=== PATIENT | female | born 1950 | race Caucasian/White ===

== ENCOUNTER 2017-03-25 11:46 | Emergency (ER) | payer MEDICARE, BC ==
--- NOTE | 2017-03-25 13:26 | EDM.PDOC ---
ED HPI GENERAL MEDICAL PROBLEM - General Stated Complaint: NOT FEELING WELL Time Seen by Provider: 03/25/17 12:15 Source of Information: Reports: Patient History Limitations: Reports: No Limitations - History of Present Illness INITIAL COMMENTS - FREE TEXT/NARRATIVE: This is a 66yo F who presents to the ER with concerns of not feeling well. She states she feels that her lactic acid is high as it was in a prior ER visit due to pain of the calves. She states she just does not feel right and is concerned. Patient unable to express exactly what is wrong but she does not feel right. Onset: Sudden Duration: Hour(s):, Getting Worse Location: Reports: Generalized Quality: Reports: Same as Previous Episode Severity: Moderate Improves with: Reports: None Worsens with: Reports: None - Related Data Allergies Allergy/AdvReac Type Severity Reaction Status Date / Time codeine Allergy Headache Verified 03/25/17 13:21 meperidine HCl [From Demerol] Allergy Headache Verified 03/25/17 13:21 peanut Allergy Nausea Verified 03/25/17 13:21 Home Meds: Home Meds Magnesium Oxide [Magnesium Oxide] 400 mg PO BID 05/23/15 [History] Pregabalin [Lyrica] 150 mg PO BID 05/23/15 [History] clonazePAM [Clonazepam] 0.25 mg PO QID 05/23/15 [History] Fish Oil/Borage/Flax/Om3,6,9#1 [[place] 3-6-9 Complex Softgel] 800 mg PO BID 11/10 [History] Folic Acid 800 mcg PO DAILY 11/11/15 [History] Past Medical History HEENT History: Reports: Impaired Vision Respiratory History: Reports: Other (See Below) Other Respiratory History: reduced lung capacity 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) Other OB/BYN History: Hysterectomy Musculoskeletal History: Reports: Back Pain, Chronic Other Musculoskeletal History: muscle pain Other Neuro History: Muscle Pain Psychiatric History: Reports: Depression, Panic Attack - Infectious Disease History Infectious Disease History: Reports: Chicken Pox, Influenza, Measles, Mumps - Past Surgical History GI Surgical History: Reports: Colonoscopy, Other (See Below) Neurological Surgical History: Reports: Lumbar Spine Social & Family History - Tobacco Use Smoking Status *Q: Never Smoker Years of Tobacco use: 10 Used Tobacco, but Quit: Yes Month Tobacco Last Used: Sep Second Hand Smoke Exposure: No - Alcohol Use Days Per Week of Alcohol Use: 0 - Recreational Drug Use Recreational Drug Use: No ED ROS GENERAL - Review of Systems Review Of Systems: ROS reveals no pertinent complaints other than HPI. ED EXAM, GENERAL - Physical Exam Exam: See Below Exam Limited By: No Limitations General Appearance: Alert, WD/WN, Anxious, Mild Distress Eye Exam: Bilateral Eye: EOMI, PERRL Ears: Normal External Exam Nose: Normal Inspection Throat/Mouth: Normal Inspection Head: Atraumatic, Normocephalic Neck: Normal Inspection Respiratory/Chest: No Respiratory Distress, Lungs Clear, Normal Breath Sounds Cardiovascular: Normal Peripheral Pulses, Regular Rate, Rhythm Peripheral Pulses: 2+: Radial (L), Radial (R), Dorsalis Pedis (L), Dorsalis Pedis (R) GI/Abdominal: Normal Bowel Sounds, Soft, Non-Tender, No Organomegaly, No Distention, No Abnormal Bruit Back Exam: Normal Inspection Extremities: Normal Inspection, Normal Range of Motion, Non-Tender, No Pedal Edema, Normal Capillary Refill Neurological: Alert, Oriented, CN II-XII Intact, Normal Cognition, Normal Gait, Normal Reflexes, No Motor/Sensory Deficits Psychiatric: Anxious Skin Exam: Warm, Dry, Intact Course - Vital Signs Last Recorded V/S: Last Vital Signs Temp 36.8 C 03/25/17 14:37 Pulse 76 03/25/17 14:37 Resp 16 03/25/17 14:37 BP 125/89 03/25/17 14:37 Pulse Ox 99 03/25/17 14:37 - Orders/Labs/Meds Labs: Laboratory Tests 03/25/17 03/25/17 03/25/17 Range/Units 12:19 12:19 12:20 WBC 4.0 D (4.0-11.0) K/uL RBC 3.99 (3.80-5.80) M/uL Hgb 12.1 (11.5-16.5) g/dL Hct 36.1 L (37.0-47.0) % MCV 91 (76-96) fL MCH 30.3 (27.0-32.0) pg MCHC 33.5 (31.0-35.0) g/dL RDW 13.1 (11.0-16.0) % Plt Count 259 (150-500) K/uL MPV 9.5 (6.0-10.0) fL Neut % (Auto) 62.8 (45.0-70.0) % Lymph % (Auto) 26.8 (20.0-40.0) % [place] % (Auto) 8.1 (3.0-10.0) % Eos % (Auto) 1.5 (1.0-5.0) % Baso % (Auto) 0.8 H (0.0-0.5) % Neut # (Auto) 2.49 (2.00-7.50) K/uL Lymph # (Auto) 1.06 L (1.50-4.00) K/uL [place] # (Auto) 0.32 (0.20-0.80) K/uL Eos # (Auto) 0.06 (0.04-0.40) K/uL Baso # (Auto) 0.03 (0.02-0.10) K/uL ESR 5 (0-30) mm/hr ABG pH (7.35-7.45) ABG pCO2 (35-45) mmHg ABG pO2 (80-105) mmHg ABG HCO3 (22-26) mmol/L ABG O2 Saturation (95-98) % ABG Base Excess (-2-2) O2 Delivery Device Sodium 148 H (136-145) mmol/L Potassium 3.8 (3.5-5.1) mmol/L Chloride 109 H (98-107) mmol/L Carbon Dioxide 35.0 H (21.0-32.0) mmol/L Anion Gap 7.8 (5.0-15.0) mmol/L BUN 15 (8-26) mg/dL Creatinine 0.72 (0.55-1.02) mg/dL Est Cr Clr Drug Dosing TNP Estimated GFR (MDRD) > 60 (>60) MLS/MIN BUN/Creatinine Ratio 20.8 (6-25) Glucose 101 H (74-100) mg/dL Lactic Acid (0.90-1.70) mmol/L Calcium 8.8 (8.5-10.1) mg/dL Magnesium (1.8-2.4) mg/dL Total Bilirubin 0.2 D (0.0-1.0) mg/dL AST 30 (15-37) U/L ALT 71 (12-78) U/L Alkaline Phosphatase 86 (46-116) U/L Troponin I (0.000-0.060) ng/mL C-Reactive Protein (0.0-3.0) mg/L B-Natriuretic Peptide (0-125) pg/mL Total Protein 6.2 L (6.4-8.2) g/dL Albumin 3.5 (3.4-5.0) g/dL Globulin 2.7 (2.2-4.2) g/dL Albumin/Globulin Ratio 1.3 (0.8-2.0) TSH, Ultra Sensitive 1.964 (0.358-3.740) uIU/mL Urine Color Urine Appearance (CLEAR) Urine pH (5.0-8.0) Ur Specific [place] (1.003-1.030) Urine Protein (NEGATIVE) mg/dL Urine Glucose (UA) (NEGATIVE) mg/dL Urine Ketones (NEGATIVE) mg/dL Urine Occult Blood (NEGATIVE) Urine Nitrite (NEGATIVE) Urine Bilirubin (NEGATIVE) Urine Urobilinogen (0.2-1.0) E.U./dL Ur Leukocyte Esterase (NEGATIVE) Urine RBC /HPF Urine WBC /HPF Ur Squamous Epith Cells /HPF Urine Bacteria /HPF 03/25/17 03/25/17 03/25/17 Range/Units 12:20 12:23 12:23 WBC (4.0-11.0) K/uL RBC (3.80-5.80) M/uL Hgb (11.5-16.5) g/dL Hct (37.0-47.0) % MCV (76-96) fL MCH (27.0-32.0) pg MCHC (31.0-35.0) g/dL RDW (11.0-16.0) % Plt Count (150-500) K/uL MPV (6.0-10.0) fL Neut % (Auto) (45.0-70.0) % Lymph % (Auto) (20.0-40.0) % [place] % (Auto) (3.0-10.0) % Eos % (Auto) (1.0-5.0) % Baso % (Auto) (0.0-0.5) % Neut # (Auto) (2.00-7.50) K/uL Lymph # (Auto) (1.50-4.00) K/uL [place] # (Auto) (0.20-0.80) K/uL Eos # (Auto) (0.04-0.40) K/uL Baso # (Auto) (0.02-0.10) K/uL ESR (0-30) mm/hr ABG pH 7.54 H* (7.35-7.45) ABG pCO2 40.8 (35-45) mmHg ABG pO2 92 (80-105) mmHg ABG HCO3 35.0 H (22-26) mmol/L ABG O2 Saturation 98 (95-98) % ABG Base Excess 12 H (-2-2) O2 Delivery Device Room air Sodium (136-145) mmol/L Potassium (3.5-5.1) mmol/L Chloride (98-107) mmol/L Carbon Dioxide (21.0-32.0) mmol/L Anion Gap (5.0-15.0) mmol/L BUN (8-26) mg/dL Creatinine (0.55-1.02) mg/dL Est Cr Clr Drug Dosing Estimated GFR (MDRD) (>60) MLS/MIN BUN/Creatinine Ratio (6-25) Glucose (74-100) mg/dL Lactic Acid 1.08 (0.90-1.70) mmol/L Calcium (8.5-10.1) mg/dL Magnesium (1.8-2.4) mg/dL Total Bilirubin (0.0-1.0) mg/dL AST (15-37) U/L ALT (12-78) U/L Alkaline Phosphatase (46-116) U/L Troponin I < 0.017 (0.000-0.060) ng/mL C-Reactive Protein 1.1 (0.0-3.0) mg/L B-Natriuretic Peptide 73 (0-125) pg/mL Total Protein (6.4-8.2) g/dL Albumin (3.4-5.0) g/dL Globulin (2.2-4.2) g/dL Albumin/Globulin Ratio (0.8-2.0) TSH, Ultra Sensitive (0.358-3.740) uIU/mL Urine Color Urine Appearance (CLEAR) Urine pH (5.0-8.0) Ur Specific [place] (1.003-1.030) Urine Protein (NEGATIVE) mg/dL Urine Glucose (UA) (NEGATIVE) mg/dL Urine Ketones (NEGATIVE) mg/dL Urine Occult Blood (NEGATIVE) Urine Nitrite (NEGATIVE) Urine Bilirubin (NEGATIVE) Urine Urobilinogen (0.2-1.0) E.U./dL Ur Leukocyte Esterase (NEGATIVE) Urine RBC /HPF Urine WBC /HPF Ur Squamous Epith Cells /HPF Urine Bacteria /HPF 03/25/17 03/25/17 Range/Units 12:36 14:15 WBC (4.0-11.0) K/uL RBC (3.80-5.80) M/uL Hgb (11.5-16.5) g/dL Hct (37.0-47.0) % MCV (76-96) fL MCH (27.0-32.0) pg MCHC (31.0-35.0) g/dL RDW (11.0-16.0) % Plt Count (150-500) K/uL MPV (6.0-10.0) fL Neut % (Auto) (45.0-70.0) % Lymph % (Auto) (20.0-40.0) % [place] % (Auto) (3.0-10.0) % Eos % (Auto) (1.0-5.0) % Baso % (Auto) (0.0-0.5) % Neut # (Auto) (2.00-7.50) K/uL Lymph # (Auto) (1.50-4.00) K/uL [place] # (Auto) (0.20-0.80) K/uL Eos # (Auto) (0.04-0.40) K/uL Baso # (Auto) (0.02-0.10) K/uL ESR (0-30) mm/hr ABG pH (7.35-7.45) ABG pCO2 (35-45) mmHg ABG pO2 (80-105) mmHg ABG HCO3 (22-26) mmol/L ABG O2 Saturation (95-98) % ABG Base Excess (-2-2) O2 Delivery Device Sodium (136-145) mmol/L Potassium (3.5-5.1) mmol/L Chloride (98-107) mmol/L Carbon Dioxide (21.0-32.0) mmol/L Anion Gap (5.0-15.0) mmol/L BUN (8-26) mg/dL Creatinine (0.55-1.02) mg/dL Est Cr Clr Drug Dosing Estimated GFR (MDRD) (>60) MLS/MIN BUN/Creatinine Ratio (6-25) Glucose (74-100) mg/dL Lactic Acid (0.90-1.70) mmol/L Calcium (8.5-10.1) mg/dL Magnesium 1.8 (1.8-2.4) mg/dL Total Bilirubin (0.0-1.0) mg/dL AST (15-37) U/L ALT (12-78) U/L Alkaline Phosphatase (46-116) U/L Troponin I (0.000-0.060) ng/mL C-Reactive Protein (0.0-3.0) mg/L B-Natriuretic Peptide (0-125) pg/mL Total Protein (6.4-8.2) g/dL Albumin (3.4-5.0) g/dL Globulin (2.2-4.2) g/dL Albumin/Globulin Ratio (0.8-2.0) TSH, Ultra Sensitive (0.358-3.740) uIU/mL Urine Color Yellow Urine Appearance Clear (CLEAR) Urine pH 8.5 H (5.0-8.0) Ur Specific [place] 1.015 (1.003-1.030) Urine Protein Negative (NEGATIVE) mg/dL Urine Glucose (UA) Negative (NEGATIVE) mg/dL Urine Ketones Negative (NEGATIVE) mg/dL Urine Occult Blood Negative (NEGATIVE) Urine Nitrite Negative (NEGATIVE) Urine Bilirubin Negative (NEGATIVE) Urine Urobilinogen 0.2 (0.2-1.0) E.U./dL Ur Leukocyte Esterase Negative (NEGATIVE) Urine RBC Not seen /HPF Urine WBC Not seen /HPF Ur Squamous Epith Cells Few /HPF Urine Bacteria Not seen /HPF Departure - Departure Time of Disposition: 16:30 Disposition: Home, Self-Care 01 Condition: Good Clinical Impression: Anxiety about health, Metabolic alkalosis - Discharge Information - Problem List & Annotations (1) Anxiety about health SNOMED Code(s): 369045649 Code(s): F41.8 - OTHER SPECIFIED ANXIETY DISORDERS Status: Acute (2) Metabolic alkalosis SNOMED Code(s): 0937701 Code(s): E87.3 - ALKALOSIS Status: Acute - Problem List Review Problem List Initiated/Reviewed/Updated: Yes - Assessment/Plan Plan: Patient counseled on metabolic alkalosis and denies any ingestion of alkaline substances or change in her diet or other symptoms eg. vomiting, diarrhea. My concern with Ms. Corado are her multiple supplements and herbals. Discussed in length on side effects and possible side effect of her supplementation and patient agrees to change this. Patient to f/u if any further concerns or health issues. Patient to f/u in clinic for repeat pH and labs as well as needed.
[2017-03-25 14:38] VITALS: BP 125/89
== END 2017-03-25 14:35 | disposition home or self-care (01) ==
LOC: LB.ED 11:46
DX: E87.3 Alkalosis (principal); F32.9 Major depressive disorder, single episode, unspecified; Z88.5 Allergy status to narcotic agent; Z91.010 Allergy to peanuts; Z88.8 Allergy status to other drugs, medicaments and biological substances; Z90.710 Acquired absence of both cervix and uterus
CPT/HCPCS: 36415; 36600; 80053; 81001; 82803; 83605; 83735; 83880; 84443; 84484; 85025; 85651; 86140; 99283; 99284

== ENCOUNTER 2018-03-12 16:42 | Emergency (ER) | payer MEDICARE, BC ==
--- NOTE | 2018-03-12 17:06 | EDM.PDOC ---
ED HPI GENERAL MEDICAL PROBLEM - General Chief Complaint: Cardiovascular Problem Stated Complaint: chest pain and shortness of breath Time Seen by Provider: 03/12/18 16:58 Source of Information: Reports: Patient, RN History Limitations: Reports: No Limitations - History of Present Illness INITIAL COMMENTS - FREE TEXT/NARRATIVE: States chest pain, midsternal and radiates to back. States some numbness around mouth and headache and pain to neck. States she feels shortness of breath since Sunday. Pt is alert and calm. States she was just out walking the dog when this started. chest pressure Pain Score (Numeric/FACES): 6 - Related Data Allergies Allergy/AdvReac Type Severity Reaction Status Date / Time codeine Allergy Headache Verified 03/25/17 13:21 meperidine HCl [From Demerol] Allergy Headache Verified 03/25/17 13:21 morphine Allergy Anaphylactic Verified 03/12/18 17:15 Shock nortriptyline Allergy Tachycardia Verified 03/12/18 17:15 peanut Allergy Nausea Verified 03/25/17 13:21 Home Meds: Home Meds Magnesium Oxide 400 mg PO BID 05/23/15 [History] clonazePAM [Clonazepam] 0.25 mg PO QID 05/23/15 [History] Fish Oil/Borage/Flax/Om3,6,9#1 [[place] 3-6-9 Complex Softgel] 800 mg PO BID 11/10 [History] Ascorbic Acid [Vitamin C] 1,000 mg PO DAILY 03/12/18 [History] Cholecalciferol (Vitamin D3) [Vitamin D] 5,000 unit PO DAILY 03/12/18 [History] Past Medical History HEENT History: Reports: Impaired Vision Respiratory History: Reports: Other (See Below) Other Respiratory History: reduced lung capacity 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 Musculoskeletal History: Reports: Back Pain, Chronic Other Musculoskeletal History: muscle pain Other Neuro History: Muscle Pain Psychiatric History: Reports: Depression, Panic Attack - Infectious Disease History Infectious Disease History: Reports: Chicken Pox, Influenza, Measles, Mumps - Past Surgical History GI Surgical History: Reports: Colonoscopy, Other (See Below) Neurological Surgical History: Reports: Lumbar Spine ED ROS GENERAL - Review of Systems Review Of Systems: See Below Constitutional: Reports: Malaise, Weakness HEENT: Reports: No Symptoms, Glasses Respiratory: Reports: Shortness of Breath Cardiovascular: Reports: Chest Pain Neurological: Reports: Other (tingling/numbness around mouth) ED EXAM, GENERAL - Physical Exam Exam: See Below Exam Limited By: No Limitations General Appearance: Alert, No Apparent Distress Ears: Hearing Grossly Normal Throat/Mouth: Normal Voice, No Airway Compromise Head: Atraumatic, Normocephalic Neck: Normal Inspection, Non-Tender Respiratory/Chest: Lungs Clear, Normal Breath Sounds. No: Rales, Rhonchi, Wheezing Cardiovascular: Regular Rate, Rhythm, No Edema GI/Abdominal: Normal Bowel Sounds, Soft, Other (upper abdominal tenderness). No : Guarding, Rigid (Female) Exam: Deferred Rectal (Female) Exam: Deferred Back Exam: Normal Inspection Extremities: Normal Inspection, Normal Range of Motion, Non-Tender, No Pedal Edema Neurological: Alert, Oriented, Normal Cognition Psychiatric: Normal Affect, Normal Mood Skin Exam: Warm, Dry, Normal Color Lymphatic: No Adenopathy Course - Vital Signs Last Recorded V/S: Last Vital Signs Temp 98.3 F 03/12/18 17:06 Pulse 56 L 03/12/18 20:04 Resp 12 03/12/18 20:04 BP 104/70 03/12/18 19:27 Pulse Ox 96 03/12/18 20:10 - Orders/Labs/Meds Orders: Active Orders 24 hr Category Date Time Status Cardiac Monitoring [RC] .As Directed Care 03/12/18 17:13 Ordered EKG Documentation Completion [RC] ASDIRECTED Care 03/12/18 17:00 Ordered Chest 1V Frontal [CR] Stat Exams 03/12/18 17:17 Ordered LORazepam [Ativan] Med 03/12/18 17:45 Ordered 0.5 mg PO Q8H PRN Sodium Chloride 0.9% [Saline Flush] Med 03/12/18 16:59 Active 10 ml FLUSH ASDIRECTED PRN Saline Lock Insert [OM.PC] Routine Oth 03/12/18 16:59 Ordered Medication Orders Lorazepam (Ativan) 0.5 mg PO Q8H PRN PRN Reason: Shortness of Breath Last Admin: 03/12/18 17:45 Dose: 0.5 mg Sodium Chloride (Saline Flush) 10 ml FLUSH ASDIRECTED PRN PRN Reason: Keep Vein Open Last Admin: 03/12/18 19:56 Dose: 10 ml Labs: Laboratory Tests 03/12/18 03/12/18 03/12/18 Range/Units 17:00 17:00 17:00 WBC 5.9 D (4.0-11.0) K/uL RBC 4.67 (3.80-5.80) M/uL Hgb 14.5 (11.5-16.5) g/dL Hct 41.4 (37.0-47.0) % MCV 89 (76-96) fL MCH 31.0 (27.0-32.0) pg MCHC 35.0 (31.0-35.0) g/dL RDW 12.3 (11.0-16.0) % Plt Count 272 (150-500) K/uL MPV 9.9 (6.0-10.0) fL Neut % (Auto) 53.5 (45.0-70.0) % Lymph % (Auto) 35.1 (20.0-40.0) % [place] % (Auto) 8.5 (3.0-10.0) % Eos % (Auto) 1.7 (1.0-5.0) % Baso % (Auto) 1.2 H (0.0-0.5) % Neut # (Auto) 3.16 (2.00-7.50) K/uL Lymph # (Auto) 2.07 (1.50-4.00) K/uL [place] # (Auto) 0.50 (0.20-0.80) K/uL Eos # (Auto) 0.10 (0.04-0.40) K/uL Baso # (Auto) 0.07 (0.02-0.10) K/uL PT (9.0-11.5) sec INR (1.0-3.5) D-Dimer, Quantitative 121 (0-400) ng/mL Sodium 144 (136-145) mmol/L Potassium 3.7 (3.5-5.1) mmol/L Chloride 104 (98-107) mmol/L Carbon Dioxide 30.6 (21.0-32.0) mmol/L Anion Gap 13.1 (5.0-15.0) mmol/L BUN 20 D (8-26) mg/dL Creatinine 0.98 D (0.55-1.02) mg/dL Est Cr Clr Drug Dosing 40.43 mL/min Estimated GFR (MDRD) 57 L (>60) MLS/MIN BUN/Creatinine Ratio 20.4 (6-25) Glucose 155 H D (74-100) mg/dL Calcium 9.1 (8.5-10.1) mg/dL Total Bilirubin 0.5 (0.0-1.0) mg/dL AST 21 (15-37) U/L ALT 34 (12-78) U/L Alkaline Phosphatase 99 (46-116) U/L Troponin I < 0.017 (0.000-0.060) ng/mL Total Protein 7.4 (6.4-8.2) g/dL Albumin 4.1 (3.4-5.0) g/dL Globulin 3.3 (2.2-4.2) g/dL Albumin/Globulin Ratio 1.2 (0.8-2.0) 03/12/18 Range/Units 17:00 WBC (4.0-11.0) K/uL RBC (3.80-5.80) M/uL Hgb (11.5-16.5) g/dL Hct (37.0-47.0) % MCV (76-96) fL MCH (27.0-32.0) pg MCHC (31.0-35.0) g/dL RDW (11.0-16.0) % Plt Count (150-500) K/uL MPV (6.0-10.0) fL Neut % (Auto) (45.0-70.0) % Lymph % (Auto) (20.0-40.0) % [place] % (Auto) (3.0-10.0) % Eos % (Auto) (1.0-5.0) % Baso % (Auto) (0.0-0.5) % Neut # (Auto) (2.00-7.50) K/uL Lymph # (Auto) (1.50-4.00) K/uL [place] # (Auto) (0.20-0.80) K/uL Eos # (Auto) (0.04-0.40) K/uL Baso # (Auto) (0.02-0.10) K/uL PT 10.5 (9.0-11.5) sec INR 1.1 (1.0-3.5) D-Dimer, Quantitative (0-400) ng/mL Sodium (136-145) mmol/L Potassium (3.5-5.1) mmol/L Chloride (98-107) mmol/L Carbon Dioxide (21.0-32.0) mmol/L Anion Gap (5.0-15.0) mmol/L BUN (8-26) mg/dL Creatinine (0.55-1.02) mg/dL Est Cr Clr Drug Dosing mL/min Estimated GFR (MDRD) (>60) MLS/MIN BUN/Creatinine Ratio (6-25) Glucose (74-100) mg/dL Calcium (8.5-10.1) mg/dL Total Bilirubin (0.0-1.0) mg/dL AST (15-37) U/L ALT (12-78) U/L Alkaline Phosphatase (46-116) U/L Troponin I (0.000-0.060) ng/mL Total Protein (6.4-8.2) g/dL Albumin (3.4-5.0) g/dL Globulin (2.2-4.2) g/dL Albumin/Globulin Ratio (0.8-2.0) Meds: Medications Generic Name Dose Route Start Last Admin Trade Name Freq PRN Reason Stop Dose Admin Lorazepam 0.5 mg 03/12/18 17:45 03/12/18 17:45 Ativan PO 0.5 mg Q8H PRN Administration Shortness of Breath Sodium Chloride 10 ml 03/12/18 16:59 03/12/18 19:56 Saline Flush FLUSH 10 ml ASDIRECTED PRN Administration Keep Vein Open Discontinued Medications Generic Name Dose Route Start Last Admin Trade Name Freq PRN Reason Stop Dose Admin Al Hydroxide/Mg Hydroxide 30 ml 03/12/18 18:03 03/12/18 18:09 Gi Cocktail PO 03/12/18 18:04 30 ml ONETIME ONE Administration Aspirin 324 mg 03/12/18 17:13 03/12/18 17:15 Aspirin PO 03/12/18 17:14 324 mg ONETIME ONE Administration Hydromorphone HCl Confirm 03/12/18 19:07 07/03/18 19:18 Dilaudid Administered 03/12/18 19:08 Not Given Dose 4 mg .ROUTE .STK-MED ONE Hydromorphone HCl 4 mg 03/12/18 19:21 03/12/18 19:54 Dilaudid IV 03/12/18 19:22 0.5 mg ONETIME ONE Administration Sodium Chloride 500 mls @ 500 mls/hr 03/12/18 18:18 03/12/18 18:23 Normal Saline IV 03/12/18 19:17 500 mls/hr .BOLUS ONE Administration Ketorolac Tromethamine 15 mg 03/12/18 18:19 03/12/18 18:23 Toradol IVPUSH 03/12/18 18:20 15 mg ONETIME ONE Administration Ketorolac Tromethamine Confirm 03/12/18 18:26 03/12/18 19:19 Toradol Administered 03/12/18 18:27 Not Given Dose 30 mg .ROUTE .STK-MED ONE Lorazepam Confirm 03/12/18 17:51 03/12/18 18:09 Ativan Administered 03/12/18 17:52 Not Given Dose 0.5 mg .ROUTE .STK-MED ONE Nitroglycerin 0.4 mg 03/12/18 17:25 03/12/18 17:31 Nitrostat SL 03/12/18 17:26 0.4 mg ONETIME ONE Administration - Re-Assessments/Exams Free Text/Narrative Re-Assessment/Exam: 03/12/18 17:26 With this chest pressure and feeling of shortness of breath, will try ASA 324 mg PO chewed, stat. Pt states she occasionally takes ASA at home, but didn't take any today. States she does have a return appointment to neurologist the end of this month. She did have a MRI of the brain in December 2017. Will try nitro. 0.4 sl X 1 for this chest pressure. States some headache after the nitro, but no relief of chest pressure. 03/12/18 17:51 Ativan 0.5 mg PO given. States she feels like muscle spasms between ribs to chest. States the neurologist is checking on this at her next visit. Reviewed EKG with Dr Feldman and compared with previous EKG. No changes in EKG noted. Reviewed lab results with pt. Negative D-dimer and neg troponins noted. No leukocytosis. No notable areas of consolidation noted to chest x- ray. 03/12/18 18:19 GI cocktail given at 18:00 and no relief of chest pressure. Will try IV bolus 500cc of Nacl. Ketorolac 15 mg IV for relief of chest wall pressure. Pt was here and did go to get a bite to eat. Pt resting. 03/12/18 19:07 States pain is 6/10 and feels like her head is in a vice. States the heat feels good, but hasn't taken any of the pain away. 03/12/18 19:22 Dilaudid 0.5 mg IV given and titrate to relief of pain. Vital signs remain stable and pt alert and talkative. SpO2 on room air is 98%. Heart rate is 60 and regular rate per patient monitor 03/12/18 22:15 Pt had been resting well after dilaudid 0.5 mg IV X 2. States relief of pain. Recommend use of hydrocodone and Ibuprofen, alternate while at home as needed for relief of pain. States she does have some hydrocodone at home that she can use. Recommend RTC next week for Follow-up. Return to ER if pain worsens. Pt discharged ambulatory in no acute distress. Pt demands to ambulate from ER. Nurse assisted to discharge to . Departure - Departure Time of Disposition: 22:15 Disposition: Home, Self-Care 01 Condition: Good Clinical Impression: Atypical chest pain Instructions: Oxycodone tablets or capsules, Ibuprofen tablets and capsules, Hydrocodone extended-release tablets, Nonspecific Chest Pain Referrals: PCP,None [Primary Care Provider] - Forms: ED Department Discharge Care Plan Goals: Take hydrocodone and alternate with ibuprofen as directed by Radha Anaya CNP. Return to clinic next week. Call for an appointment. Keep appointment with neurologist as planned. - My Orders Last 24 Hours: My Active Orders 03/12/18 16:59 Sodium Chloride 0.9% [Saline Flush] 10 ml FLUSH ASDIRECTED PRN Saline Lock Insert [OM.PC] Routine 03/12/18 17:00 EKG Documentation Completion [RC] ASDIRECTED 03/12/18 17:13 Cardiac Monitoring [RC] .As Directed 03/12/18 17:17 Chest 1V Frontal [CR] Stat 03/12/18 17:45 LORazepam [Ativan] 0.5 mg PO Q8H PRN - Assessment/Plan Last 24 Hours: My Active Orders 03/12/18 16:59 Sodium Chloride 0.9% [Saline Flush] 10 ml FLUSH ASDIRECTED PRN Saline Lock Insert [OM.PC] Routine 03/12/18 17:00 EKG Documentation Completion [RC] ASDIRECTED 03/12/18 17:13 Cardiac Monitoring [RC] .As Directed 03/12/18 17:17 Chest 1V Frontal [CR] Stat 03/12/18 17:45 LORazepam [Ativan] 0.5 mg PO Q8H PRN
[2018-03-12] MEDS ORDERED: Aspirin 81 MG Tab.Chew PO ONE (17:13)
[2018-03-12] MEDS ORDERED: Nitroglycerin 0.4 MG Tab.SL SL ONE (17:25)
[2018-03-12] MEDS ORDERED: LORazepam 0.5 MG Tab PO PRN (17:45)
[2018-03-12] MEDS ORDERED: LORazepam 0.5 MG Tab ONE (17:51)
[2018-03-12] MEDS ORDERED: GI Cocktail Oral Solution 30 ML PO ONE (18:03)
[2018-03-12] MEDS ORDERED: Sodium Chloride 0.9% 500 ML IV ONE (18:18)
[2018-03-12] MEDS ORDERED: Ketorolac 60 MG/2 ML SDV IVPUSH ONE (18:19)
[2018-03-12] MEDS ORDERED: Ketorolac 30 MG/ML SDV ONE (18:26)
[2018-03-12] MEDS ORDERED: HYDROmorphone 4 MG/ML Syringe ONE (19:07)
[2018-03-12] MEDS: Sodium Chloride 0.9% 10 ML Syringe FLUSH PRN ×2 (19:20→19:56)
[2018-03-12] MEDS: HYDROmorphone 2 MG/ML Syringe IV ONE ×2 (19:25→19:54)
[2018-03-12 22:56] VITALS: BP 95/57
--- NOTE | 2018-03-13 10:33 | CR ---
DATE OF SERVICE: 03/12/18 CLINICAL DATA: chest pain PORTABLE CHEST: Comparison made to a prior exam dated 08/25/15. The heart size is normal. The lungs are clear. No changes from the prior exam. No evidence of acute intrathoracic disease. [id number] [facility]
== END 2018-03-12 22:15 | disposition home or self-care (01) ==
LOC: LB.ED 16:42
DX: R07.89 Other chest pain (principal); Z88.5 Allergy status to narcotic agent; Z91.018 Allergy to other foods
CPT/HCPCS: 36415; 71045; 80053; 84484; 85025; 85379; 85610; 93005; 96361; 96374; 96375; 99285-25; A9270-GY; J1170; J1885; J7040; J7050

== ENCOUNTER 2018-11-16 15:47 | Emergency (ER) | payer MEDICARE, BC ==
[2018-11-16] MEDS ORDERED: Ketorolac 60 MG/2 ML SDV IM ONE (16:30)
[2018-11-16 16:49] VITALS: BP 139/86
--- NOTE | 2018-11-16 16:53 | EDM.PDOC ---
ED HPI GENERAL MEDICAL PROBLEM - General Chief Complaint: General Stated Complaint: NOT FEELING ANY BETTER Time Seen by Provider: 11/16/18 15:50 Source of Information: Reports: Patient History Limitations: Reports: No Limitations - History of Present Illness INITIAL COMMENTS - FREE TEXT/NARRATIVE: Pt is a 68 year old female , presents to the emergency room with pain complaints. In patient's own words" my head hurt , my whole right side of the neck hurt , my chest hurt, my abdomen hurts all the way into my hips and pelvis. The center of my body feels like it is all ripping apart.My rectum is tearing apart." Has started today morning. Pt is crying in the emergency room. She gets numb all over the body. She claims this pain started after her recent gall bladder surgery done 2 wks ago at [place]. No fever or chills. No nausea or vomiting. No cough or productive sputum. No dysuria. No shortness of breath. No diarrhea or constipation. Duration: Week(s): (2 wks) Location: Reports: Head, Face, Neck, Chest, Abdomen, Back, Pelvis Severity: Severe Improves with: Reports: None Worsens with: Reports: None Associated Symptoms: Reports: Chest Pain, Headaches. Denies: Confusion, Cough, Diaphoresis, Fever/Chills, Loss of Appetite, Malaise, Nausea/Vomiting, Rash, Seizure, Shortness of Breath, Syncope, Weakness - Related Data Allergies Allergy/AdvReac Type Severity Reaction Status Date / Time codeine Allergy Headache Verified 03/25/17 13:21 meperidine HCl [From Demerol] Allergy Headache Verified 03/25/17 13:21 morphine Allergy Anaphylactic Verified 03/12/18 17:15 Shock nortriptyline Allergy Tachycardia Verified 03/12/18 17:15 peanut Allergy Nausea Verified 03/25/17 13:21 Home Meds: Home Meds Magnesium Oxide 400 mg PO BID 05/23/15 [History] Fish Oil/Borage/Flax/Om3,6,9#1 [[place] 3-6-9 Complex Softgel] 800 mg PO BID 11/10 [History] Ascorbic Acid [Vitamin C] 1,000 mg PO DAILY 03/12/18 [History] Cholecalciferol (Vitamin D3) [Vitamin D] 5,000 unit PO DAILY 03/12/18 [History] Past Medical History HEENT History: Reports: Impaired Vision Other HEENT History: wears glasses Respiratory History: Reports: Other (See Below) Other Respiratory History: reduced lung capacity [employer] 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) Other [employer] History: Hysterectomy Musculoskeletal History: Reports: Back Pain, Chronic Other Musculoskeletal History: muscle pain Neurological History: Reports: Headaches, Chronic Other Neuro History: Muscle Pain Psychiatric History: Reports: Depression, Panic Attack Other Dermatologic History: Poison stacey or oak - Infectious Disease History Infectious Disease History: Reports: Chicken Pox, Influenza, Measles, Mumps - Past Surgical History GI Surgical History: Reports: Colonoscopy, Other (See Below) Neurological Surgical History: Reports: Lumbar Spine Social & Family History - Family History Family Medical History: Noncontributory - Caffeine Use Caffeine Use: Reports: Coffee ED ROS GENERAL - Review of Systems Review Of Systems: See Below Constitutional: Denies: Fever, Chills, Malaise, Weakness HEENT: Denies: Rhinitis, Throat Pain, Throat Swelling Respiratory: Denies: Shortness of Breath, Wheezing, Pleuritic Chest Pain, Cough , Sputum Cardiovascular: Reports: Chest Pain. Denies: Lightheadedness GI/Abdominal: Reports: Abdominal Pain, Flatus. Denies: Constipation, Diarrhea, Nausea, Vomiting : Reports: Flank Pain. Denies: Dysuria, Frequency, Hematuria Musculoskeletal: Denies: Joint Pain, Joint Swelling Skin: Denies: Bruising, Pruritis, Rash ED EXAM, GENERAL - Physical Exam Exam: See Below Exam Limited By: No Limitations General Appearance: Alert, WD/WN, No Apparent Distress Eye Exam: Bilateral Eye: EOMI, PERRL Ears: Normal External Exam, Normal Canal, Hearing Grossly Normal, Normal TMs Ear Exam: Bilateral Ear: Auricle Normal, Canal Normal, TM normal Nose: Normal Inspection, Normal Mucosa, No Blood Throat/Mouth: Normal Inspection, Normal Lips, Normal Teeth, Normal Gums, Normal Oropharynx, Normal Voice, No Airway Compromise Head: Atraumatic, Normocephalic Neck: Normal Inspection, Supple, Non-Tender, Full Range of Motion Respiratory/Chest: No Respiratory Distress, Lungs Clear, Normal Breath Sounds, No Accessory Muscle Use, Chest Non-Tender Cardiovascular: Normal Peripheral Pulses, Regular Rate, Rhythm, No Edema, No Gallop, No JVD, No Murmur, No Rub GI/Abdominal: Normal Bowel Sounds, Soft, Non-Tender, No Organomegaly, No Distention, No Abnormal Bruit, No Mass, Other (laproscopic cholecystectomy scars have healed well.) Course - Vital Signs Text/Narrative:: Pt has a very chronic history of very unusual pain symptoms. Clinical her vitals are very stable. Her heart rte is 70/min and her BP is 139/78mmhg. She rates her pain as 10/10. She is crying with pain. I cannot medically explain her pain. The pain is not along any nerve roots or dermatomes. Nor has any musculoskeletal pattern either. Pt has had extensive workup for her pain including, [facility], [facility] and [facility] in the past, and non have come up with any answers. Pt did receive toradol 30mg IM . She is asking me how long the pain medication will last. I have told patient that It lasts for 8 hrs. and after that she can take motrin 600mg 3 times daily with food and followup with her primary care provider. Pt is not having any acute cardiac, neurologic or abdominal pain symptoms. Pt reassured. - Orders/Labs/Meds Meds: Medications Discontinued Medications Generic Name Dose Route Start Last Admin Trade Name Freq PRN Reason Stop Dose Admin Ketorolac Tromethamine 30 mg 11/16/18 16:30 11/16/18 16:29 Toradol IM 11/16/18 16:31 30 mg ONETIME ONE Administration Departure - Departure Time of Disposition: 16:45 Disposition: Home, Self-Care 01 Condition: Fair Clinical Impression: Chronic pain - Discharge Information *PRESCRIPTION DRUG MONITORING PROGRAM REVIEWED*: Not Applicable *COPY OF PRESCRIPTION DRUG MONITORING REPORT IN PATIENT ERIC: Not Applicable Forms: ED Department Discharge Additional Instructions: Take Motrin for pain in 24 hours and follow up in clinic with your provider. - Problem List & Annotations (1) Chronic pain SNOMED Code(s): 08699621 Code(s): G89.29 - OTHER CHRONIC PAIN Status: Acute - Problem List Review Problem List Initiated/Reviewed/Updated: Yes - Assessment/Plan Assessment:: acute on chronic pain Plan: Pt has a very chronic history of very unusual pain symptoms. Clinical her vitals are very stable. Her heart rte is 70/min and her BP is 139/78mmhg. She rates her pain as 10/10. She is crying with pain. I cannot medically explain her pain. The pain is not along any nerve roots or dermatomes. Nor has any musculoskeletal pattern either. Pt has had extensive workup for her pain including, [facility], [facility] and [facility] in the past, and non have come up with any answers. Pt did receive toradol 30mg IM . She is asking me how long the pain medication will last. I have told patient that It lasts for 8 hrs. and after that she can take motrin 600mg 3 times daily with food and followup with her primary care provider. Pt is not having any acute cardiac, neurologic or abdominal pain symptoms. Pt reassured.
== END 2018-11-16 16:39 | disposition home or self-care (01) ==
LOC: LB.ED 15:47
DX: G89.29 Other chronic pain (principal); M54.2 Cervicalgia; R07.9 Chest pain, unspecified; R10.9 Unspecified abdominal pain; M25.552 Pain in left hip; M25.551 Pain in right hip; R10.2 Pelvic and perineal pain; Z88.5 Allergy status to narcotic agent; Z91.010 Allergy to peanuts; Z88.8 Allergy status to other drugs, medicaments and biological substances; Z79.899 Other long term (current) drug therapy
CPT/HCPCS: 96372; 99283; J1885

== ENCOUNTER 2019-03-20 08:00 | Day surgery (SDC) | payer MEDICARE, BC ==
[~2019-03-20 08:00] MED LIST: Sodium Chloride 0.9% 1,000 ML IV SCH
[2019-03-20] MEDS ORDERED: Propofol 1,000 MG/100 ML SDV ONE (10:52)
--- NOTE | 2019-03-20 11:31 | OR ---
DATE OF OPERATION: 03/20/2019 PREOPERATIVE DIAGNOSIS: Epigastric pain and dysphagia. POSTOPERATIVE DIAGNOSIS: Epigastric pain and dysphagia. PROCEDURE: EGD with biopsy. ANESTHESIA: MAC. ESTIMATED BLOOD LOSS: Minimal. COMPLICATIONS: None. INDICATION FOR THE PROCEDURE: The patient is a 68-year-old female who for the past month has had increased epigastric pain as well as some intermittent dysphagia. She had been started on omeprazole several weeks ago with minimal improvement. She has never had an EGD before. She is here today for upper scope. DESCRIPTION OF PROCEDURE: Informed consent was obtained from the patient. The patient was taken to the operating room and placed on the table in left lateral decubitus position. Monitored anesthesia care was administered. The esophagogastroscope was then advanced through the mouth and directed toward the duodenum. Second portion of the duodenum was reached and appeared normal. Gastric antrum did show some minimal gastritis. Cold forceps biopsy was taken to check for H pylori. Retroflexion performed in the stomach was also otherwise unremarkable. The scope was then withdrawn into the distal esophagus. No stricture noted. No signs of esophagitis or acid reflux noted as well. The scope was then removed. FINDINGS: Minimal gastritis. RECOMMENDATIONS: We will follow up on H pylori biopsy. Would recommend continued use of omeprazole. May consider Carafate if symptoms do not improve as well and an H pylori is negative. REMI /[id number]
[2019-03-20 12:43] VITALS: BP 129/68; PULSE 59
== END 2019-03-20 12:40 | disposition home or self-care (01) ==
LOC: LB.SDS 08:00
PROVIDERS: ATTEND Surgery
DX: R10.13 Epigastric pain (principal); R13.10 Dysphagia, unspecified; K31.89 Other diseases of stomach and duodenum; R63.0 Anorexia; G89.29 Other chronic pain; Z88.5 Allergy status to narcotic agent; Z88.8 Allergy status to other drugs, medicaments and biological substances; Z91.010 Allergy to peanuts; Z79.899 Other long term (current) drug therapy
CPT/HCPCS: 43239; 88305; J2704; J7030; 43246

== ENCOUNTER 2019-07-07 11:55 | Emergency (ER) | payer MEDICARE, BC ==
--- NOTE | 2019-07-07 13:05 | CT ---
Date of Service: 07/07/19 Clinical Data: Possible CVA UNENHANCED BRAIN CT: Multislice acquisition through the brain without IV contrast was performed. Comparison is made to a prior exam dated 08/22/18. No masses or mass effect. No intracranial hemorrhage. No evidence of acute or subacute infarct. No osseous abnormalities. IMPRESSION: No acute intracranial abnormalities. [id number] [facility]
[2019-07-07 13:16] VITALS: BP 114/64; PULSE 59
--- NOTE | 2019-07-07 16:17 | EDM.PDOC ---
ED HPI GENERAL MEDICAL PROBLEM - General Chief Complaint: Neurological Problem Stated Complaint: Slurred speech and weakness Time Seen by Provider: 07/07/19 12:20 Source of Information: Reports: Patient History Limitations: Reports: Other (slurred speech and b/l leg weakness) - History of Present Illness INITIAL COMMENTS - FREE TEXT/NARRATIVE: This is a 68yo F here for an abrupt change in her speech and b/l weakness of the legs at 1030am. She was normal she notes and then suddenly her symptoms started. She was unable to walk and felt like she was going to fall over. Her speech slurred. She denies any fever, no injuries to the back recently, no pain or other issues. Onset: Sudden Duration: Hour(s): Location: Reports: Lower Extremity, Left, Lower Extremity, Right, Other (speech slurred abruptly around 1030am) Severity: Moderate Associated Symptoms: Reports: Weakness - Related Data Allergies Allergy/AdvReac Type Severity Reaction Status Date / Time codeine Allergy Headache Verified 07/07/19 13:06 fentanyl Allergy Other Verified 07/07/19 13:06 meperidine HCl [From Demerol] Allergy Headache Verified 07/07/19 13:06 morphine Allergy Anaphylactic Verified 07/07/19 13:06 Shock nortriptyline Allergy Tachycardia Verified 07/07/19 13:06 prednisone Allergy Other Verified 07/07/19 13:06 Home Meds: Home Meds Ascorbic Acid [Vitamin C] 1,000 mg PO BID 03/12/18 [History] Cholecalciferol (Vitamin D3) [Vitamin D] 5,000 unit PO DAILY 03/12/18 [History] Omeprazole 20 mg PO DAILY 03/18/19 [History] ALPRAZolam [Xanax] 0.5 mg PO Q8HR PRN 03/19/19 [History] Curcumin 500 mg MC BID 03/19/19 [History] Gabapentin [Neurontin] 600 mg PO BID 03/19/19 [History] L.acidoph,Paracasei, B.lactis [Probiotic] 1 each PO DAILY 03/19/19 [History] Non-Formulary Medication [NF Drug] 300 mg PO BID 03/19/19 [History] Hydrocodone/Acetaminophen [Hydrocodon-Acetaminophn 10-325] 1 tab PO BID [History] clonazePAM [Clonazepam] 1 tab PO BID 07/07/19 [History] Past Medical History HEENT History: Reports: Impaired Vision Other HEENT History: wears glasses Respiratory History: Reports: Other (See Below) Other Respiratory History: reduced lung capacity [employer] 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 Musculoskeletal History: Reports: Back Pain, Chronic, Fibromyalgia Other Musculoskeletal History: muscle pain Neurological History: Reports: Headaches, Chronic Other Neuro History: Muscle Pain Psychiatric History: Reports: Depression, Panic Attack Other Dermatologic History: Poison stacey or oak - Infectious Disease History Infectious Disease History: Reports: Chicken Pox, Influenza, Measles, Mumps - Past Surgical History Other Cardiovascular Surgeries/Procedures: stress test neg GI Surgical History: Reports: Colonoscopy, Other (See Below) Female Surgical History: Reports: Hysterectomy Other Female Surgeries/Procedures: kept one ovary Neurological Surgical History: Reports: Lumbar Spine Social & Family History - Family History Family Medical History: Noncontributory - Caffeine Use Caffeine Use: Reports: Coffee ED ROS GENERAL - Review of Systems Review Of Systems: ROS reveals no pertinent complaints other than HPI. ED EXAM, NEURO - Physical Exam Exam: See Below Exam Limited By: No Limitations General Appearance: Alert, Moderate Distress, Thin Eye Exam: Bilateral Eye: EOMI, PERRL Ears: Normal External Exam Nose: Normal Inspection Throat/Mouth: Normal Inspection Head Exam: Atraumatic, Normocephalic Neck: Normal Inspection, Supple, Non-Tender Respiratory/Chest: No Respiratory Distress, Lungs Clear, Normal Breath Sounds Cardiovascular: Normal Peripheral Pulses, Regular Rate, Rhythm GI/Abdominal: Normal Bowel Sounds, Soft, Non-Tender Neurological: Alert, Oriented x 3, Difficulty Walking Back Exam: Normal Inspection Course - Vital Signs Last Recorded V/S: Last Vital Signs Temp 36.3 C 07/07/19 13:15 Pulse 59 L 07/07/19 13:15 Resp 16 07/07/19 13:15 BP 114/64 07/07/19 13:15 Pulse Ox 100 07/07/19 13:15 - Orders/Labs/Meds Orders: Active Orders 24 hr Category Date Time Status EKG Documentation Completion [RC] ASDIRECTED Care 07/07/19 12:35 Active CULTURE URINE [RM] Stat Lab 07/07/19 12:28 Received Labs: Laboratory Tests 07/07/19 07/07/19 07/07/19 Range/Units 11:30 12:28 12:30 WBC 3.6 L D (4.0-11.0) K/uL RBC 4.27 (3.80-5.80) M/uL Hgb 12.9 (11.5-16.5) g/dL Hct 38.6 (37.0-47.0) % MCV 90 (76-96) fL MCH 30.2 (27.0-32.0) pg MCHC 33.4 (31.0-35.0) g/dL RDW 12.4 (11.0-16.0) % Plt Count 254 (150-500) K/uL MPV 10.0 (6.0-10.0) fL Neut % (Auto) 35.6 L (45.0-70.0) % Lymph % (Auto) 49.6 H (20.0-40.0) % [place] % (Auto) 12.3 H (3.0-10.0) % Eos % (Auto) 1.7 (1.0-5.0) % Baso % (Auto) 0.8 H (0.0-0.5) % Neut # (Auto) 1.28 L (2.00-7.50) K/uL Lymph # (Auto) 1.78 (1.50-4.00) K/uL [place] # (Auto) 0.44 (0.20-0.80) K/uL Eos # (Auto) 0.06 (0.04-0.40) K/uL Baso # (Auto) 0.03 (0.02-0.10) K/uL Sodium 142 (136-145) mmol/L Potassium 3.9 (3.5-5.1) mmol/L Chloride 106 (98-107) mmol/L Carbon Dioxide 29.6 (21.0-32.0) mmol/L Anion Gap 10.3 (5.0-15.0) mmol/L BUN 14 (8-26) mg/dL Creatinine 0.88 (0.55-1.02) mg/dL Est Cr Clr Drug Dosing 44.42 mL/min Estimated GFR (MDRD) > 60 (>60) MLS/MIN BUN/Creatinine Ratio 15.9 (6-25) Glucose 116 H (74-100) mg/dL Calcium 9.4 (8.5-10.1) mg/dL Total Bilirubin 0.4 (0.0-1.0) mg/dL AST 34 (15-37) U/L ALT 88 H (12-78) U/L Alkaline Phosphatase 119 H (46-116) U/L Total Protein 7.0 (6.4-8.2) g/dL Albumin 3.8 (3.4-5.0) g/dL Globulin 3.2 (2.2-4.2) g/dL Albumin/Globulin Ratio 1.2 (0.8-2.0) TSH, Ultra Sensitive 1.375 (0.358-3.740) uIU/mL Urine Color Yellow Urine Appearance Slightly cloudy (CLEAR) Urine pH 5.0 (5.0-8.0) Ur Specific [place] 1.025 (1.003-1.030) Urine Protein Negative (NEGATIVE) mg/dL Urine Glucose (UA) Negative (NEGATIVE) mg/dL Urine Ketones Negative (NEGATIVE) mg/dL Urine Occult Blood Negative (NEGATIVE) Urine Nitrite Negative (NEGATIVE) Urine Bilirubin Negative (NEGATIVE) Urine Urobilinogen 0.2 (0.2-1.0) E.U./dL Ur Leukocyte Esterase Large H (NEGATIVE) Urine RBC 0-5 H /HPF Urine WBC 30-40 H /HPF Urine WBC Clumps Few /HPF Ur Squamous Epith Cells Moderate /HPF Amorphous Sediment Moderate /HPF Urine Bacteria Moderate H /HPF Departure - Departure Time of Disposition: 14:00 Disposition: DC/Tfer to Acute Hospital 02 Condition: Undetermined Clinical Impression: Episodic ataxia with slurred speech, Leg weakness, bilateral - Discharge Information Referrals: PCP,None [Primary Care Provider] - - Problem List & Annotations (1) Episodic ataxia with slurred speech SNOMED Code(s): 142375606 Code(s): R27.0 - ATAXIA, UNSPECIFIED; R47.81 - SLURRED SPEECH Status: Acute Priority: High (2) Leg weakness, bilateral SNOMED Code(s): 4467857 Code(s): R29.898 - OTH SYMPTOMS AND SIGNS INVOLVING THE MUSCULOSKELETAL SYSTEM Status: Acute Priority: High - Problem List Review Problem List Initiated/Reviewed/Updated: Yes - My Orders Last 24 Hours: My Active Orders 07/07/19 12:28 CULTURE URINE [RM] Stat 07/07/19 12:35 EKG Documentation Completion [RC] ASDIRECTED - Assessment/Plan Last 24 Hours: My Active Orders 07/07/19 12:28 CULTURE URINE [RM] Stat 07/07/19 12:35 EKG Documentation Completion [RC] ASDIRECTED Plan: Patient to be transferred to [facility] for further evaluation by Hospitalist and Neurology. Patient vitals and labs stable.
== END 2019-07-07 13:54 ==
LOC: LB.ED 11:55
DX: R27.0 Ataxia, unspecified (principal); R47.81 Slurred speech; R53.1 Weakness; Z88.5 Allergy status to narcotic agent; Z88.8 Allergy status to other drugs, medicaments and biological substances
CPT/HCPCS: 36415; 70450; 80053; 81001; 81003; 84443; 85025; 87086; 93005; 99285; 99285-25; A0425; A0429

== ENCOUNTER → 2019-07-18 | Outpatient (CLI) | payer MEDICARE, BC | LOC: LB.CLINIC 13:27 | PROVIDERS: ATTEND Nurse Practitioner Family | DX: R74.8 Abnormal levels of other serum enzymes (principal) | CPT/HCPCS: 36415; 80076 ==

== ENCOUNTER → 2019-07-24 | Outpatient (CLI) | payer MEDICARE, BC ==
--- NOTE | 2019-07-25 09:01 | US ---
DATE OF SERVICE: 07/24/19 CLINICAL DATA: Abnormal levels of other serum enzymes,Generalized abdominal pain. ABDOMEN ULTRASOUND: The gallbladder is absent consistent with recent surgical history. The liver is normal size. It does have mildly increased echogenicity diffusely , suggesting mild diffuse fatty infiltration. No focal hepatic lesions. No intra or extrahepatic biliary duct dilatation. The common bile duct measures 4 mm. The pancreas appears normal. The spleen appears normal. The right and left kidneys appear normal. No hydronephrosis or hydroureter. No evidence of renal calculi. No aortic aneurysm. No masses and no abnormal fluid collections. [id number] [facility]
== END ==
LOC: LB.US 08:41
PROVIDERS: ATTEND Nurse Practitioner Family
DX: R74.8 Abnormal levels of other serum enzymes (principal); R10.84 Generalized abdominal pain
CPT/HCPCS: 76700

== ENCOUNTER 2021-03-12 14:15 | Emergency (ER) | payer MEDICARE, BC ==
[2021-03-12 14:19] VITALS: BP 125/74; PULSE 74
--- NOTE | 2021-03-12 14:27 | EDM.PDOC ---
ED HPI GENERAL MEDICAL PROBLEM - General Chief Complaint: General Stated Complaint: pain Time Seen by Provider: 03/12/21 14:27 Source of Information: Reports: Patient, Old Records History Limitations: Reports: No Limitations - History of Present Illness INITIAL COMMENTS - FREE TEXT/NARRATIVE: patient presented to the ER with vague symptoms including chronic pain to body and head. Reports pain to the right half of her face, body, back, down to the rectum. no numbness or tingling. No weakness. no vision or speech problems. Symptoms started 3-4 days ago, thou she admits that it has been happening for 10+ years. h/o fibromyalgia - but she reports that isn't her typical FM pain. She is on gabapentin, Tizanidine and clonazepam. Also on medical marijuana THC/CBD. patient has underwent extensive workup for auto-immune diseases, and allergies. Also recent MRI head. No auto-immune disease detected - but she has food allergy to gluten, banana and pork - for which she hasn't been consuming. Patient walked into the ER without any problems. She reports seeing her PCP last week for similar issue - and also being evaluated extensively at [place] and [place] - whenever I ask her about what they did for her or what they told her is wrong - she says '' they did nothing '', '' they said nothing is wrong ''. !! Bilateral Leg Pain Score (Numeric/FACES): 0 - Related Data Allergies Allergy/AdvReac Type Severity Reaction Status Date / Time codeine Allergy Headache Verified 03/12/21 14:23 fentanyl Allergy Other Verified 03/12/21 14:23 meperidine HCl [From Demerol] Allergy Headache Verified 03/12/21 14:23 morphine Allergy Anaphylactic Verified 03/12/21 14:23 Shock nortriptyline Allergy Tachycardia Verified 03/12/21 14:23 prednisone Allergy Other Verified 03/12/21 14:23 Home Meds: Home Meds Gabapentin [Neurontin] 800 mg PO BID 03/19/19 [History] clonazePAM [Clonazepam] 1 tab PO BID PRN 07/07/19 [History] tiZANidine HCl [Tizanidine HCl] 4 mg PO TID 03/19/20 [History] Estradiol [María Elena] 1 tab PO DAILY 03/12/21 [History] Past Medical History HEENT History: Reports: Impaired Vision Other HEENT History: wears glasses Respiratory History: Reports: Other (See Below) Other Respiratory History: reduced lung capacity SUPERVISOR LIQUEFACTION History: Reports: Other (See Below) Other SUPERVISOR LIQUEFACTION History: Hysterectomy Musculoskeletal History: Reports: Back Pain, Chronic, Fibromyalgia Other Musculoskeletal History: muscle pain Neurological History: Reports: Headaches, Chronic Other Neuro History: Muscle Pain Psychiatric History: Reports: Depression, Panic Attack Other Dermatologic History: Poison stacey or oak - Infectious Disease History Infectious Disease History: Reports: Chicken Pox, Influenza, Measles, Mumps - Past Surgical History Other Cardiovascular Surgeries/Procedures: stress test neg GI Surgical History: Reports: Colonoscopy, Other (See Below) Female Surgical History: Reports: Hysterectomy Other Female Surgeries/Procedures: kept one ovary Neurological Surgical History: Reports: Lumbar Spine Social & Family History - Family History Family Medical History: No Pertinent Family History - Caffeine Use Caffeine Use: Reports: Coffee ED ROS GENERAL - Review of Systems Review Of Systems: See Below Constitutional: Reports: Malaise, Fatigue HEENT: Reports: No Symptoms Respiratory: Reports: No Symptoms Cardiovascular: Reports: No Symptoms GI/Abdominal: Reports: No Symptoms : Reports: No Symptoms Skin: Reports: No Symptoms Neurological: Reports: Headache Psychiatric: Reports: Anxiety ED EXAM, GENERAL - Physical Exam Exam: See Below Exam Limited By: No Limitations General Appearance: Alert, WD/WN, No Apparent Distress Eye Exam: Bilateral Eye: EOMI, PERRL Nose: Normal Inspection Head: Atraumatic Respiratory/Chest: No Respiratory Distress, Lungs Clear, Normal Breath Sounds Cardiovascular: Normal Peripheral Pulses, Regular Rate, Rhythm, No Edema GI/Abdominal: Normal Bowel Sounds, Soft, Non-Tender Back Exam: Normal Inspection, Full Range of Motion Neurological: Alert, Oriented, No Motor/Sensory Deficits Psychiatric: Anxious Skin Exam: Warm, Dry, Intact Course - Vital Signs Last Recorded V/S: Last Vital Signs Temp 36.8 C 03/12/21 14:15 Pulse 74 03/12/21 14:15 Resp 22 H 03/12/21 14:15 BP 125/74 03/12/21 14:15 Pulse Ox 98 03/12/21 14:15 - Orders/Labs/Meds Labs: Laboratory Tests 03/12/21 03/12/21 Range/Units 14:35 14:35 WBC 5.1 (4.0-11.0) K/uL RBC 3.76 L (3.80-5.80) M/uL Hgb 12.0 (11.5-16.5) g/dL Hct 34.8 L (37.0-47.0) % MCV 93 (76-96) fL MCH 31.9 (27.0-32.0) pg MCHC 34.5 (31.0-35.0) g/dL RDW 12.7 (11.0-16.0) % Plt Count 228 (150-500) K/uL MPV 10.0 (6.0-10.0) fL ESR 5 (0-30) mm/hr Sodium 143 (136-145) mmol/L Potassium 3.9 (3.5-5.1) mmol/L Chloride 106 (98-107) mmol/L Carbon Dioxide 26.4 (21.0-32.0) mmol/L Anion Gap 14.5 (5.0-15.0) mmol/L BUN 16 (8-26) mg/dL Creatinine 0.83 (0.55-1.02) mg/dL Est Cr Clr Drug Dosing 48.10 mL/min Estimated GFR (MDRD) > 60 (>60) MLS/MIN BUN/Creatinine Ratio 19.3 (6-25) Glucose 104 H (74-100) mg/dL Calcium 8.5 (8.5-10.1) mg/dL C-Reactive Protein 0.5 (0.0-3.0) mg/L Meds: Medications Discontinued Medications Generic Name Dose Route Start Last Admin Trade Name Mariela PRN Reason Stop Dose Admin Ketorolac Tromethamine Confirm 03/12/21 15:30 03/12/21 15:23 Ketorolac 60 Mg/2 Ml Sdv Administered 03/12/21 15:31 Not Given Dose 60 mg .ROUTE .STK-MED ONE Ketorolac Tromethamine 60 mg 03/12/21 15:23 03/12/21 15:24 Ketorolac 60 Mg/2 Ml Sdv IM 03/12/21 15:24 60 mg ONETIME ONE Administration - Re-Assessments/Exams Free Text/Narrative Re-Assessment/Exam: normal vitals labs - CBC, BMP, ESR and CRP -- WNL. IM Toradol was given - helped with her symptoms was offered to start her on Anti-depressant medication - she admitted that she is already on some - but stopped taking it 3 weeks ago,, and only used it for a week Departure - Departure Time of Disposition: 15:51 Disposition: Home, Self-Care 01 Condition: Good Clinical Impression: Anxiety about health, Chronic pain - Discharge Information *PRESCRIPTION DRUG MONITORING PROGRAM REVIEWED*: Not Applicable *COPY OF PRESCRIPTION DRUG MONITORING REPORT IN PATIENT ERIC: Not Applicable Referrals: PCP,None [Primary Care Provider] - Forms: ED Department Discharge Sepsis Event Note (ED) - Evaluation Sepsis Screening Result: No Definite Risk - Focused Exam Vital Signs: Vital Signs Temp Pulse Resp BP Pulse Ox 03/12/21 14:15 36.8 C 74 22 H 125/74 98 - Problem List & Annotations (1) Anxiety about health SNOMED Code(s): 154331839 Code(s): F41.8 - OTHER SPECIFIED ANXIETY DISORDERS Status: Chronic Priority: Low Current Visit: No (2) Chronic pain SNOMED Code(s): 54136106 Code(s): G89.29 - OTHER CHRONIC PAIN Status: Chronic Priority: Low Current Visit: No Qualifiers: Chronic pain type: chronic pain syndrome Qualified Code(s): G89.4 - Chronic pain syndrome - Problem List Review Problem List Initiated/Reviewed/Updated: Yes - Assessment/Plan Plan: - resume home meds as before - resume taking your anti-depression medication for at least 4 weeks - follow up with your PCP in 1-2 months as needed
[2021-03-12] MEDS ORDERED: Ketorolac 60 MG/2 ML SDV IM ONE (15:23)
[2021-03-12] MEDS ORDERED: Ketorolac 60 MG/2 ML SDV ONE (15:30)
== END 2021-03-12 16:08 | disposition home or self-care (01) ==
LOC: LB.ED 14:15
DX: F41.9 Anxiety disorder, unspecified (principal); G89.29 Other chronic pain; Z88.5 Allergy status to narcotic agent; Z88.6 Allergy status to analgesic agent; Z88.8 Allergy status to other drugs, medicaments and biological substances
CPT/HCPCS: 36415; 80048; 85027; 85651; 86140; 96372; 99284; J1885

== ENCOUNTER 2021-03-24 08:17 | Emergency (ER) | payer MEDICARE, BC ==
[2021-03-24 08:43] VITALS: BP 109/67; PULSE 78
[2021-03-24] MEDS: LORazepam 1 MG Tab PO ONE (09:03)
[2021-03-24] MEDS ORDERED: LORazepam 1 MG Tab ONE (09:12)
[2021-03-24] MEDS: HYDROmorphone 4 MG/ML Syringe SUBCUT ONE (09:54)
[2021-03-24] MEDS ORDERED: HYDROmorphone 2 MG/ML SDV ONE (10:03)
--- NOTE | 2021-03-24 14:23 | CR ---
Date of Service: 03/24/21 Clinical Data: chest wall pain. AP CHEST: Comparison is made to a prior exam dated 03/12/18. The heart size is normal. The lungs are mildly hyperexpanded but clear. No pneumothorax. No pleural effusions. No evidence of acute intrathoracic disease. [id number] [facility]
--- NOTE | 2021-03-24 14:58 | EDM.PDOC ---
ED HPI GENERAL MEDICAL PROBLEM - General Chief Complaint: General Stated Complaint: SPASMS IN HEAD AND CHEST WALL Time Seen by Provider: 03/24/21 08:35 - History of Present Illness INITIAL COMMENTS - FREE TEXT/NARRATIVE: Pt states she has severe chronic pain involving her chest wall, that feels like spasms. And pain from her head to her rectum. Also chronic other area's of pain. No recent falls or injuries. She has had multiple work ups at different facilities, without any definite diagnosis found. Onset: Gradual Location: Reports: Generalized Quality: Reports: Ache, Sharp, Stabbing Severity: Severe Worsens with: Reports: Movement Treatments TURNTABLE ENGINEER: Reports: Other (see below) (she has multiple meds like Neurontin and Ultram.) Bilateral Lower Leg Pain Score (Numeric/FACES): 10 - Related Data Allergies Allergy/AdvReac Type Severity Reaction Status Date / Time codeine Allergy Headache Verified 03/12/21 14:23 fentanyl Allergy Other Verified 03/12/21 14:23 meperidine HCl [From Demerol] Allergy Headache Verified 03/12/21 14:23 morphine Allergy Anaphylactic Verified 03/12/21 14:23 Shock nortriptyline Allergy Tachycardia Verified 03/12/21 14:23 prednisone Allergy Other Verified 03/12/21 14:23 Home Meds: Home Meds Gabapentin [Neurontin] 800 mg PO BID 03/19/19 [History] clonazePAM [Clonazepam] 1 tab PO BID PRN 07/07/19 [History] tiZANidine HCl [Tizanidine HCl] 4 mg PO TID 03/19/20 [History] Estradiol [María Elena] 1 tab PO DAILY 03/12/21 [History] Past Medical History - Past Health History Medical/Surgical History: Denies Medical/Surgical History HEENT History: Reports: Impaired Vision Other HEENT History: wears glasses Respiratory History: Reports: Other (See Below) Other Respiratory History: reduced lung capacity 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 (See Below) Other MANAGER OF HOUSEKEEPING History: Hysterectomy Musculoskeletal History: Reports: Back Pain, Chronic, Fibromyalgia Other Musculoskeletal History: muscle pain Neurological History: Reports: Headaches, Chronic Other Neuro History: Muscle Pain Psychiatric History: Reports: Depression, Panic Attack Other Dermatologic History: Poison stacey or oak - Infectious Disease History Infectious Disease History: Reports: Chicken Pox, Influenza, Measles, Mumps - Past Surgical History HEENT Surgical History: Reports: Tonsillectomy Other HEENT Surgeries/Procedures: hx having teeth pulled and has dentures Other Cardiovascular Surgeries/Procedures: stress test neg GI Surgical History: Reports: Colonoscopy, Other (See Below) Other GI Surgeries/Procedures: thickening in abd wall Female Surgical History: Reports: Hysterectomy Other Female Surgeries/Procedures: kept one ovary Neurological Surgical History: Reports: Lumbar Spine Other Neurological Surgeries/Procedures: Bone marrow test taken out of spine Social & Family History - Family History Family Medical History: No Pertinent Family History - Tobacco Use Tobacco Use Status *Q: Never Tobacco User - Caffeine Use Caffeine Use: Reports: Coffee ED ROS GENERAL - Review of Systems Review Of Systems: Comprehensive ROS is negative, except as noted in HPI. HEENT: Reports: Other (Pain at the back of her head.) Cardiovascular: Reports: Chest Pain GI/Abdominal: Reports: Abdominal Pain Musculoskeletal: Reports: Neck Pain, Arm Pain, Leg Pain, Muscle Pain ED EXAM, GENERAL - Physical Exam Exam: See Below Respiratory/Chest: Other (Tenderness with light palpation of the chest and Abd.) Extremities: Arm Pain, Leg Pain (with palpation.) Course - Vital Signs Text/Narrative:: I gave her Ativan 1 mg IM. She stated it did not help her pain. Dilaudid 1 mg Subq was then given. She didn't think this helped much either. Last Recorded V/S: Last Vital Signs Temp Pulse 78 03/24/21 08:40 Resp 20 03/24/21 08:40 BP 109/67 03/24/21 08:40 Pulse Ox 96 03/24/21 08:40 - Orders/Labs/Meds Labs: Laboratory Tests 03/24/21 03/24/21 03/24/21 Range/Units 09:03 09:03 09:03 WBC 5.3 (4.0-11.0) K/uL RBC 3.95 (3.80-5.80) M/uL Hgb 12.6 (11.5-16.5) g/dL Hct 36.6 L (37.0-47.0) % MCV 93 (76-96) fL MCH 31.9 (27.0-32.0) pg MCHC 34.4 (31.0-35.0) g/dL RDW 12.7 (11.0-16.0) % Plt Count 235 (150-500) K/uL MPV 10.0 (6.0-10.0) fL Neut % (Auto) 76.6 H (45.0-70.0) % Lymph % (Auto) 16.3 L (20.0-40.0) % Coles % (Auto) 5.9 (3.0-10.0) % Eos % (Auto) 0.4 L (1.0-5.0) % Baso % (Auto) 0.8 H (0.0-0.5) % Neut # (Auto) 4.03 (2.00-7.50) K/uL Lymph # (Auto) 0.86 L (1.50-4.00) K/uL Coles # (Auto) 0.31 (0.20-0.80) K/uL Eos # (Auto) 0.02 L (0.04-0.40) K/uL Baso # (Auto) 0.04 (0.02-0.10) K/uL ESR 7 (0-30) mm/hr Sodium 142 (136-145) mmol/L Potassium 4.0 (3.5-5.1) mmol/L Chloride 106 (98-107) mmol/L Carbon Dioxide 27.8 (21.0-32.0) mmol/L Anion Gap 12.2 (5.0-15.0) mmol/L BUN 14 D (8-26) mg/dL Creatinine 0.81 (0.55-1.02) mg/dL Est Cr Clr Drug Dosing 49.28 mL/min Estimated GFR (MDRD) > 60 (>60) MLS/MIN BUN/Creatinine Ratio 17.3 (6-25) Glucose 146 H D (74-100) mg/dL Calcium 8.4 L (8.5-10.1) mg/dL Total Bilirubin 0.4 D (0.0-1.0) mg/dL AST 19 (15-37) U/L ALT 31 (12-78) U/L Alkaline Phosphatase 88 (46-116) U/L Creatine Kinase 62 (21-232) U/L Total Protein 6.7 (6.4-8.2) g/dL Albumin 3.5 (3.4-5.0) g/dL Globulin 3.2 (2.2-4.2) g/dL Albumin/Globulin Ratio 1.1 (0.8-2.0) Meds: Medications Discontinued Medications Generic Name Dose Route Start Last Admin Trade Name Mariela PRStephen Reason Stop Dose Admin Hydromorphone HCl 1 mg 03/24/21 09:50 03/24/21 09:54 Hydromorphone 4 Mg/Ml Syringe SUBCUT 03/24/21 09:51 1 mg ONETIME ONE Administration Hydromorphone HCl Confirm 03/24/21 10:03 Hydromorphone 2 Mg/Ml Sdv Administered 03/24/21 10:04 Dose 2 mg .ROUTE .STK-MED ONE Lorazepam 1 mg 03/24/21 08:58 03/24/21 09:03 Lorazepam 1 Mg Tab PO 03/24/21 08:59 1 mg ONETIME ONE Administration Lorazepam Confirm 03/24/21 09:12 Lorazepam 1 Mg Tab Administered 03/24/21 09:13 Dose 1 mg .ROUTE .STK-MED ONE - Radiology Interpretation Free Text/Narrative:: CXR is negative for any acute findings. - Re-Assessments/Exams Free Text/Narrative Re-Assessment/Exam: 03/24/21 15:00 I had a long talk with the pt about her chronic generalized pain issues. I feel she needs to be seen again by Rheumatology and possibly Neurology. She has already done this, but her symptoms continue. She agree's to try low dose prednisone, telling me she only has issues with it in high doses. Departure - Departure Time of Disposition: 10:35 Disposition: Home, Self-Care 01 Clinical Impression: Pain, Chronic pain disorder - Discharge Information *PRESCRIPTION DRUG MONITORING PROGRAM REVIEWED*: Yes *COPY OF PRESCRIPTION DRUG MONITORING REPORT IN PATIENT ERIC: Yes Referrals: PCP,None [Ordering Only Provider] - Forms: ED Department Discharge Additional Instructions: RX for Prednisone written, directed to take 1 tab per day for 7 days. Recommend to increase frequency of Klonopin, take 1 tab twice a day. Follow up with primary care in 1-2 days, obtain referral to Rheumatology. Sepsis Event Note (ED) - Evaluation Sepsis Screening Result: No Definite Risk - Focused Exam Vital Signs: Vital Signs Pulse Resp BP Pulse Ox 03/24/21 08:40 78 20 109/67 96
== END 2021-03-24 10:31 | disposition home or self-care (01) ==
LOC: LB.ED 08:17
DX: R07.89 Other chest pain (principal); G89.29 Other chronic pain; R51.9 Headache, unspecified; M79.661 Pain in right lower leg; M79.662 Pain in left lower leg; M79.603 Pain in arm, unspecified; Z88.5 Allergy status to narcotic agent; Z88.6 Allergy status to analgesic agent; Z88.8 Allergy status to other drugs, medicaments and biological substances; Z79.899 Other long term (current) drug therapy
CPT/HCPCS: 36415; 71045; 80053; 82550; 85025; 85651; 96372; 99283-25; A9270-GY; J1170

== ENCOUNTER 2021-04-03 12:15 | Emergency (ER) | payer MEDICARE, BC ==
--- NOTE | 2021-04-03 12:41 | EDM.PDOC ---
ED HPI GENERAL MEDICAL PROBLEM - General Chief Complaint: General Stated Complaint: panic attack Time Seen by Provider: 04/03/21 12:25 Source of Information: Reports: Patient History Limitations: Reports: No Limitations - History of Present Illness INITIAL COMMENTS - FREE TEXT/NARRATIVE: patient presented to the ER due to anxiety. h/o chronic anxiety, and chronic pain. Multiple several work ups in the near past - including infectious disease and auto-immune diseases - all WNL. Already on clonazepam and THC/CBD. She was also started recently on Medrol dose pack. Reports that she had a panic attack this morning - tried Clonezapam - but no benefit. Decided to come to the ER for further eval. 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: Other (see below) Other Treatments RADIO FREQUENCY DESIGN ENGINEER: clonazapam 1 mg - Related Data Allergies Allergy/AdvReac Type Severity Reaction Status Date / Time codeine Allergy Headache Verified 03/12/21 14:23 fentanyl Allergy Other Verified 03/12/21 14:23 meperidine HCl [From Demerol] Allergy Headache Verified 03/12/21 14:23 morphine Allergy Anaphylactic Verified 03/12/21 14:23 Shock nortriptyline Allergy Tachycardia Verified 03/12/21 14:23 prednisone Allergy Other Verified 03/12/21 14:23 Home Meds: Home Meds Gabapentin [Neurontin] 800 mg PO BID 03/19/19 [History] clonazePAM [Clonazepam] 1 tab PO BID PRN 07/07/19 [History] tiZANidine HCl [Tizanidine HCl] 4 mg PO TID 03/19/20 [History] Estradiol [María Elena] 1 tab PO DAILY 03/12/21 [History] Cannabidiol (Cbd) Extract [CBD Oil] 900 ml PO TID PRN 04/03/21 [History] Cyclobenzaprine [Flexeril] 10 mg PO TID PRN 04/03/21 [History] Past Medical History - Past Health History Medical/Surgical History: Denies Medical/Surgical History HEENT History: Reports: Impaired Vision Other HEENT History: wears glasses Respiratory History: Reports: Other (See Below) Other Respiratory History: reduced lung capacity MANAGER INVESTIGATIONS History: Reports: Other (See Below) Other MANAGER INVESTIGATIONS History: Hysterectomy Musculoskeletal History: Reports: Back Pain, Chronic, Fibromyalgia Other Musculoskeletal History: muscle pain Neurological History: Reports: Headaches, Chronic Other Neuro History: Muscle Pain Psychiatric History: Reports: Depression, Panic Attack Other Dermatologic History: Poison stacey or oak - Infectious Disease History Infectious Disease History: Reports: Chicken Pox, Influenza, Measles, Mumps - Past Surgical History HEENT Surgical History: Reports: Tonsillectomy Other HEENT Surgeries/Procedures: hx having teeth pulled and has dentures Other Cardiovascular Surgeries/Procedures: stress test neg GI Surgical History: Reports: Colonoscopy, Other (See Below) Other GI Surgeries/Procedures: thickening in abd wall Female Surgical History: Reports: Hysterectomy Other Female Surgeries/Procedures: kept one ovary Neurological Surgical History: Reports: Lumbar Spine Other Neurological Surgeries/Procedures: Bone marrow test taken out of spine Social & Family History - Family History Family Medical History: No Pertinent Family History - Caffeine Use Caffeine Use: Reports: Coffee ED ROS GENERAL - Review of Systems Review Of Systems: See Below Constitutional: Reports: No Symptoms HEENT: Reports: No Symptoms Respiratory: Reports: No Symptoms Cardiovascular: Reports: No Symptoms GI/Abdominal: Reports: No Symptoms Musculoskeletal: Reports: Shoulder Pain, Arm Pain, Back Pain, Hand Pain, Leg Pain, Muscle Stiffness Skin: Reports: No Symptoms Psychiatric: Reports: Agitation, Anxiety, Depression ED EXAM, GENERAL - Physical Exam Exam: See Below Exam Limited By: No Limitations General Appearance: Alert, WD/WN, No Apparent Distress Eye Exam: Bilateral Eye: EOMI Head: Atraumatic, Normocephalic Respiratory/Chest: No Respiratory Distress Cardiovascular: Normal Peripheral Pulses, Regular Rate, Rhythm Extremities: Normal Inspection Neurological: Alert, Oriented, No Motor/Sensory Deficits Psychiatric: Normal Affect, Anxious Course - Vital Signs Last Recorded V/S: Last Vital Signs Temp 36.8 C 04/03/21 12:48 Pulse 89 04/03/21 12:48 Resp 22 H 04/03/21 12:48 BP 125/79 04/03/21 12:48 Pulse Ox 99 04/03/21 12:48 - Orders/Labs/Meds Meds: Medications Discontinued Medications Generic Name Dose Route Start Last Admin Trade Name Freq PRN Reason Stop Dose Admin Lorazepam 1 mg 04/03/21 12:30 04/03/21 13:01 Lorazepam 1 Mg Tab PO 04/03/21 12:31 1 mg ONETIME ONE Administration Lorazepam 1 mg 04/03/21 13:07 04/03/21 13:11 Lorazepam 1 Mg Tab PO 04/03/21 13:08 1 mg ONETIME ONE Administration - Re-Assessments/Exams Free Text/Narrative Re-Assessment/Exam: vitals WNL Ativan 1mg PO was given - symptoms slightly improved dose was repeated - patient seems much calmer no narcotics were given discussed with her non pharmacological options for therapy - see d/c instructions Departure - Departure Time of Disposition: 13:45 Disposition: Home, Self-Care 01 Condition: Good Clinical Impression: Anxiety, Anxiety about health, Panic attack - Discharge Information *PRESCRIPTION DRUG MONITORING PROGRAM REVIEWED*: Not Applicable *COPY OF PRESCRIPTION DRUG MONITORING REPORT IN PATIENT ERIC: Not Applicable Instructions: Generalized Anxiety Disorder, Adult, Panic Attack, [id number] Forms: ED Department Discharge Additional Instructions: - follow up with your PCP next week - recommend to discuss with your neurologist about obtaining a spinal tap. - also recommend to try acupuncture - resume home meds as before - try meditation on a daily basis to help control emotions Sepsis Event Note (ED) - Focused Exam Vital Signs: Vital Signs Temp Pulse Resp BP Pulse Ox 04/03/21 12:48 36.8 C 89 22 H 125/79 99 - Problem List & Annotations (1) Panic attack SNOMED Code(s): 078119181 Code(s): F41.0 - PANIC DISORDER [EPISODIC PAROXYSMAL ANXIETY] Status: Acute Priority: Low (2) Anxiety SNOMED Code(s): 81294633 Code(s): F41.9 - ANXIETY DISORDER, UNSPECIFIED Status: Acute Priority: Medium Onset Date: 01/16/15 - Problem List Review Problem List Initiated/Reviewed/Updated: Yes - Assessment/Plan Plan: - follow up with your PCP next week - recommend to discuss with your neurologist about obtaining a spinal tap. - also recommend to try acupuncture - resume home meds as before - try meditation on a daily basis to help control emotions
[2021-04-03 12:57] VITALS: BP 125/79; PULSE 89
[2021-04-03] MEDS: LORazepam 1 MG Tab PO ONE ×2 (13:01→13:11)
== END 2021-04-03 14:00 | disposition home or self-care (01) ==
LOC: LB.ED 12:15
DX: F41.0 Panic disorder [episodic paroxysmal anxiety] (principal); Z88.5 Allergy status to narcotic agent; Z88.6 Allergy status to analgesic agent; Z88.8 Allergy status to other drugs, medicaments and biological substances; Z79.899 Other long term (current) drug therapy
CPT/HCPCS: 99283; A9270-GY

== ENCOUNTER 2022-03-07 10:50 | Emergency (ER) | payer MEDICARE, BC ==
[2022-03-07 13:53] VITALS: BP 123/82; PULSE 73
== END 2022-03-07 13:45 | disposition home or self-care (01) ==
LOC: LB.ED 10:50
DX: U07.1 COVID-19 (principal); R04.2 Hemoptysis; Z88.5 Allergy status to narcotic agent; Z88.8 Allergy status to other drugs, medicaments and biological substances
CPT/HCPCS: 36415; 71250; 85025; 85379; 99281; 99284-25

== ENCOUNTER 2022-03-15 09:37 | Emergency (ER) | payer MEDICARE, BC ==
[2022-03-15 09:53] VITALS: BP 136/85; PULSE 85
== END 2022-03-15 10:41 | disposition home or self-care (01) ==
LOC: LB.ED 09:37
DX: G89.4 Chronic pain syndrome (principal); R52 Pain, unspecified; Z88.8 Allergy status to other drugs, medicaments and biological substances; Z88.5 Allergy status to narcotic agent
CPT/HCPCS: 99283

== ENCOUNTER 2022-10-13 10:00 | Emergency (ER) | payer MEDICARE, BC ==
[2022-10-13] MEDS: Sodium Chloride 0.9% 1,000 ML IV SCH (11:20)
[2022-10-13] MEDS ORDERED: Sodium Chloride 0.9% 10 ML Syringe FLUSH PRN (11:23)
[2022-10-13] MEDS: Ketorolac 60 MG/2 ML SDV IVPUSH ONE (12:27)
[2022-10-13] MEDS: HYDROmorphone 2 MG/ML Syringe IVPUSH ONE (14:40)
[2022-10-13] MEDS: HYDROmorphone 2 MG/ML Syringe ONE (14:47)
[2022-10-13] MEDS: Sodium Chloride 0.9% 50 ML SDV FLUSH ONE (15:05)
[2022-10-13] MEDS: Iopamidol 612 MG/ML 100 ML Bottle IV SCH (15:05)
[2022-10-13] MEDS: SUMAtriptan 6 MG/0.5 ML SDV SUBCUT ONE (16:40)
[2022-10-13] MEDS: SUMAtriptan 6 MG/0.5 ML SDV ONE (16:44)
[2022-10-13 18:39] VITALS: BP 133/70; PULSE 55
== END 2022-10-13 17:45 | disposition home or self-care (01) ==
LOC: SUPCPDRO 10:00 → LB.ED 10:00
DX: N39.0 Urinary tract infection, site not specified (principal); E83.42 Hypomagnesemia; M79.10 Myalgia, unspecified site; Z88.5 Allergy status to narcotic agent; Z88.8 Allergy status to other drugs, medicaments and biological substances; Z87.891 Personal history of nicotine dependence
CPT/HCPCS: 36415; 70470; 80053; 81001; 83605; 83735; 84100; 85027; 85651; 86140; 86618; 87086; 93005; 93010; 96361; 96365; 96372; 96375; 99284; 99284-25; J1170; J1885; J3030; J3475; J7030; Q9967

== ENCOUNTER 2022-12-07 10:11 | Emergency (ER) | payer MEDICARE, BC ==
[2022-12-07] MEDS ORDERED: Sodium Chloride 0.9% 10 ML Syringe FLUSH PRN (10:44)
[2022-12-07] MEDS ORDERED: Sodium Chloride 0.9% 1,000 ML IV ONE (11:23)
[2022-12-07] MEDS ORDERED: SUMAtriptan 6 MG/0.5 ML SDV SUBCUT ONE (12:03)
[2022-12-07] MEDS ORDERED: SUMAtriptan 6 MG/0.5 ML SDV ONE (12:19)
[2022-12-07] MEDS ORDERED: HYDROmorphone 2 MG/ML Syringe ONE (12:58)
[2022-12-07] MEDS ORDERED: HYDROmorphone 2 MG/ML Syringe IVPUSH ONE (13:06)
[2022-12-07] MEDS ORDERED: LORazepam 2 MG/ML SDV IVPUSH ONE (13:42)
[2022-12-07] MEDS ORDERED: LORazepam 2 MG/ML SDV ONE (13:55)
[2022-12-07] MEDS ORDERED: GI Cocktail Oral Solution 30 ML PO ONE (16:09)
[2022-12-07] MEDS ORDERED: Magnesium Sulfate/Water 2 GM in Premix Bag 1 BAG IV ONE (16:09)
[2022-12-07] MEDS ORDERED: Magnesium Sulfate/Water 50 ML ONE (16:37)
[2022-12-07] MEDS ORDERED: Ketorolac 60 MG/2 ML SDV IVPUSH ONE ×2 (18:01→19:44)
[2022-12-07] MEDS ORDERED: Ketorolac 60 MG/2 ML SDV ONE (18:20)
[2022-12-07] MEDS ORDERED: Ketorolac 30 MG/ML SDV ONE (19:59)
[2022-12-07 20:16] VITALS: BP 124/71; PULSE 58
[2022-12-11 13:11] LABS: LYME TOTAL ANTIBODY CIA Negative (Negative)
== END 2022-12-07 20:05 | disposition home or self-care (01) ==
LOC: LB.ED 10:11
DX: K29.70 Gastritis, unspecified, without bleeding (principal); F41.9 Anxiety disorder, unspecified; R93.3 Abnormal findings on diagnostic imaging of other parts of digestive tract; G89.4 Chronic pain syndrome; Z87.891 Personal history of nicotine dependence; Z88.5 Allergy status to narcotic agent; Z88.8 Allergy status to other drugs, medicaments and biological substances; Z88.6 Allergy status to analgesic agent; Z91.018 Allergy to other foods; Z79.899 Other long term (current) drug therapy
CPT/HCPCS: 36415; 74176; 80048; 81003; 83735; 84100; 84484; 85027; 85651; 86140; 86618; 87476; 93005; 96361; 96365; 96366; 96372; 96375; 99284; A9270; J1170; J1885; J2060; J3030; J3475; J3490; J7030

== ENCOUNTER 2022-12-20 09:03 | Emergency (ER) | payer MEDICARE, BC ==
[2022-12-20] MEDS ORDERED: Sodium Chloride 0.9% 10 ML Syringe FLUSH PRN (09:54)
[2022-12-20] MEDS ORDERED: Ondansetron 4 MG/2 ML SDV IVPUSH ONE (09:55)
[2022-12-20] MEDS ORDERED: Diazepam 10 MG Tab PO ONE (09:58)
[2022-12-20] MEDS ORDERED: Sodium Chloride 0.9% 1,000 ML IV SCH (10:00)
[2022-12-20] MEDS ORDERED: Diazepam 5 MG Tab PO ONE (10:15)
[2022-12-20] MEDS ORDERED: Ondansetron 4 MG/2 ML SDV ONE (10:24)
[2022-12-20] MEDS ORDERED: Diazepam 5 MG Tab ONE (10:25)
[2022-12-20] MEDS ORDERED: Orphenadrine 60 MG/2 ML Inj IV ONE ×2 (11:23→12:43)
[2022-12-20] MEDS ORDERED: Orphenadrine 60 MG/2 ML Inj ONE ×2 (11:37→12:58)
[2022-12-20] MEDS ORDERED: Ketorolac 60 MG/2 ML SDV IVPUSH ONE (14:10)
[2022-12-20] MEDS ORDERED: Ketorolac 30 MG/ML SDV IVPUSH ONE (14:24)
[2022-12-20] MEDS ORDERED: Ketorolac 30 MG/ML SDV IM ONE (14:24)
[2022-12-20] MEDS ORDERED: Ketorolac 30 MG/ML SDV ONE (14:34)
[2022-12-20] MEDS ORDERED: HYDROmorphone 2 MG/ML Syringe IVPUSH ONE (14:46)
[2022-12-20] MEDS ORDERED: HYDROmorphone 2 MG/ML Syringe ONE (14:59)
[2022-12-20 16:48] VITALS: BP 125/75; PULSE 60
== END 2022-12-20 16:30 | disposition home or self-care (01) ==
LOC: LB.ED 09:03
DX: G44.009 Cluster headache syndrome, unspecified, not intractable (principal); G44.209 Tension-type headache, unspecified, not intractable; Z91.018 Allergy to other foods; Z88.5 Allergy status to narcotic agent; Z88.8 Allergy status to other drugs, medicaments and biological substances; Z87.891 Personal history of nicotine dependence
CPT/HCPCS: 36415; 70450; 80053; 81003; 83735; 84100; 85027; 96361; 96365; 96375; 96376; 99284-25; A9270-GY; J1170; J1885; J2360; J2405; J3475; J3490; J7030